=== PATIENT | male | born 1980 | race Hispanic/Latino ===

== ENCOUNTER 2018-06-04 11:13 | Emergency (ER) | payer OTHER ==
[2018-06-04 11:36] VITALS: BMI 24.4
[2018-06-04 11:38] VITALS: TEMP 98.5; O2SAT 97
[2018-06-04] MEDS ORDERED: Morphine 4 MG/ML VIAL IVP ONE (11:55)
[2018-06-04] MEDS ORDERED: Sodium Chloride 0.9% 50 ML IV ONE (12:07)
[2018-06-04] MEDS ORDERED: Iodixanol 320 MG/ML 100 ML BOTTLE IV ONE (12:07)
[2018-06-04] MEDS ORDERED: Morphine 4 MG/ML VIAL ONE (13:08)
--- NOTE | 2018-06-04 13:40 | ED PDOC ---
Upper Extremity Pain/Injury Time Seen by Provider: 06/04/18 11:23 Chief Complaint (Nursing): Upper Extremity Problem/Injury Chief Complaint (Provider): Upper Extremity Problem/Injury History Per: Patient History/Exam Limitations: no limitations Onset/Duration Of Symptoms: Days (x2) Current Symptoms Are (Timing): Still Present Additional Complaint(s): Patient is a 37 y/o male with a PMHx of pancreatitis and metastatic cancer who presents to the ED for evaluation of right shoulder pain for the past two days. Patient states the pain feels better when standing, however, has been experiencing worsening right arm pain as of recently. In addition, patient admits to weakness from chemotherapy. Patient reports to have been taking Oxycodone with no relief of symptoms. Patient denies any recent trauma. Of note, patient came to ED with paperwork for CT chest with contrast for further cancer workup requested by oncologist. PCP: None Provided Past Medical History Reviewed: Historical Data, Nursing Documentation, Vital Signs Vital Signs: Last Vital Signs Temp 98.5 F 06/04/18 11:37 Pulse 82 06/04/18 11:37 Resp 20 06/04/18 11:37 BP 133/81 06/04/18 11:37 Pulse Ox 97 06/04/18 11:37 - Medical History PMH: Pancreatitis Denies: Kidney Stones, Chronic Kidney Disease Other PMH: Metastatic Cancer - Surgical History Surgical History: No Surg Hx - Family History Family History: States: Unknown Family Hx - Home Medications Home Medications: Ambulatory Orders Medication Instructions Recorded RX: levoFLOXacin [Levaquin] 750 mg PO DAILY #5 tab 06/04/18 - Allergies Allergies/Adverse Reactions: Allergies Allergy/AdvReac Type Severity Reaction Status Date / Time No Known Allergies Allergy Verified 12/25/15 07:28 Review of Systems ROS Statement: Except As Marked, All Systems Reviewed And Found Negative Musculoskeletal: Positive for: Shoulder Pain (right), Arm Pain (worsening pressurized pain on right arm) Neurological: Positive for: Weakness Physical Exam - Reviewed Nursing Documentation Reviewed: Yes Vital Signs Reviewed: Yes - Physical Exam Appears: Positive for: No Acute Distress (tired) Head Exam: Positive for: ATRAUMATIC, NORMAL INSPECTION, NORMOCEPHALIC Skin: Positive for: Normal Color, Warm, Dry Eye Exam: Positive for: EOMI, Normal appearance, PERRL Neck: Positive for: Normal, Painless ROM, Supple Cardiovascular/Chest: Positive for: Regular Rate, Rhythm. Negative for: Murmur Respiratory: Positive for: Normal Breath Sounds. Negative for: Respiratory Distress Gastrointestinal/Abdominal: Positive for: Normal Exam, Soft. Negative for: Tenderness Back: Positive for: Normal Inspection. Negative for: L CVA Tenderness, R CVA Tenderness, Vertebral Tenderness Extremity: Positive for: Tenderness (to palpation of anterior and lateral shoulder ). Negative for: Normal ROM (unable to move arm because of severe pain), Pedal Edema, Deformity Neurologic/Psych: Positive for: Alert, Oriented. Negative for: Motor/Sensory Deficits - Laboratory Results Result Diagrams: 06/04/18 13:36 06/04/18 13:36 - ECG O2 Sat by Pulse Oximetry: 97 (RA) Pulse Ox Interpretation: Normal Medical Decision Making Medical Decision Making: Time: 1153 Impression: Workup for onset new shoulder pain, r/o cardiac vs pulmonary iteology with history of new onset chemotherapy and advanced metastatic cancer. Plan: CT Angio Chest PE Protocol CMP CBC PTT Prothrombin Time CXR Morphine 8 mg IVP Time: 1200 An oncology appointment was scheduled with [facility] for tomorrow. Currently Following oncologist in [place]. Time: 184 CT shows right lower lobe PNA. Will send blood culture and start patient on levaquin. Discussed case with patient's oncologist, Dr. Sultana phone number [phone]. Patient is getting lab results and will further be treated for pain. Patient will be discharged home with Rx of Levaquin. Patient has a scheduled follow up tomorrow. Return parameters were discussed. Scribe Attestation: Documented by Evens Echeverria, acting as a scribe for Kasey Rico MD. Provider Scribe Attestation: All medical record entries made by the Scribe were at my direction and personally dictated by me. I have reviewed the chart and agree that the record accurately reflects my personal performance of the history, physical exam, medical decision making, and the department course for this patient. I have also personally directed, reviewed, and agree with the discharge instructions and disposition. Disposition - Clinical Impression Clinical Impression: Pneumonia - Disposition Disposition: Routine/Home Disposition Time: 18:50 Condition: IMPROVED Additional Instructions: Take antibiotics as prescribed. Follow up with primary medical doctor and oncologists as needed. Return to the emergency department if symptoms worsen or if new symptoms develop. Prescriptions: RX: levoFLOXacin [Levaquin] 750 mg PO DAILY #5 tab Instructions: Pneumonia, Adult (DC) Forms: [facility] (Malaysian) Print Language: AUSTRIAN
[2018-06-04 14:12] LABS: BASO % 0.2 % (0.0-2.0); EOS % 0.6 % (0.0-4.0); HEMOGLOBIN 11.5 g/dL (12.0-18.0); LYMPH # 0.7 K/uL (1.0-4.3); LYMPH % 10.1 % (20.0-40.0); MEAN CELL VOLUME 93.4 fl (80.0-94.0); MEAN CORPUSCULAR HEMOGLOBIN 30.9 pg (27.0-31.0); MEAN CORPUSCULAR HGB CONC 33.1 g/dL (33.0-37.0); MEAN PLATELET VOLUME 9.4 fl (7.2-11.7); MONO % 0.3 % (0.0-10.0); NEUT # 6.4 K/uL (1.8-7.0); NEUT % 88.8 % (50.0-75.0); RBC 3.73 Mil/uL (4.40-5.90); RED CELL DISTRIBUTION WIDTH 12.4 % (11.5-14.5); WHITE BLOOD COUNT 7.2 K/uL (4.8-10.8)
[2018-06-04 14:18] LABS: INR 1.4; PROTHROMBIN TIME 15.7 Seconds (9.8-13.1)
[2018-06-04 14:20] LABS: PARTIAL THROMBOPLASTIN TIME 37.1 Seconds (25.6-37.1)
[2018-06-04 14:40] LABS: ALB/GLOB RATIO 1.3 (1.0-2.1); ALBUMIN 4.1 g/dL (3.5-5.0); ALT/SGPT 164 U/L (21-72); AST/SGOT 378 U/L (17-59); BLOOD UREA NITROGEN 31 mg/dl (9-20); CALCIUM 9.5 mg/dL (8.4-10.2); GFR NON-AFRICAN AMERICAN 56
--- NOTE | 2018-06-04 14:59 | RAD ---
Date of service: 06/04/2018 HISTORY: cough COMPARISON: No prior. TECHNIQUE: Chest PA and lateral FINDINGS: LUNGS: No active pulmonary disease. PLEURA: No significant pleural effusion identified. No pneumothorax apparent. CARDIOVASCULAR: No aortic atherosclerotic calcification present. Normal cardiac size. No pulmonary vascular congestion. OSSEOUS STRUCTURES: No significant abnormalities. VISUALIZED UPPER ABDOMEN: Normal. OTHER FINDINGS: None. IMPRESSION: No active disease.
[2018-06-04] MEDS ORDERED: Sodium Chloride 0.9% 1,000 ML IV STA (15:06)
--- NOTE | 2018-06-04 15:15 | RAD ---
Date of service: 06/04/2018 PROCEDURE: Radiographs of the Right Shoulder HISTORY: new onset shoulder pain COMPARISON: No prior. FINDINGS: BONES: Normal. No fracture. JOINTS: Normal. Glenohumeral and acromioclavicular joints preserved. No osteoarthritis. SOFT TISSUES: Normal. OTHER FINDINGS: None. IMPRESSION: Normal radiographs of the right shoulder.
[2018-06-04 16:01] VITALS: BP 125/79; PULSE 81; RESP 18
[2018-06-04] MEDS ORDERED: levoFLOXacin 750 mg in D5W 150 ML BAG IVPB STA (18:47)
[2018-06-04] MEDS ORDERED: levoFLOXacin 750 mg in D5W 750 MG/150 ML BAG IVPB ONE (19:02)
--- NOTE | 2018-06-05 11:09 | CT ---
Date of service: 06/04/2018 PROCEDURE: CT Chest with contrast (Pulmonary Angiogram) HISTORY: r/o PE and lung mets COMPARISON: How the TECHNIQUE: Axial computed tomography images were obtained of the chest in the pulmonary arterial phase of enhancement. Coronal and sagittal reformatted images were created and reviewed. Intravenous contrast dose: 99 mL Visipaque 320 Radiation dose: Total exam DLP = 480.78 mGy-cm. This CT exam was performed using one or more of the following dose reduction techniques: Automated exposure control, adjustment of the mA and/or kV according to patient size, and/or use of iterative reconstruction technique. FINDINGS: PULMONARY ARTERIES: Evaluation of acute pulmonary embolism is limited due to missed bolus. There are no large central filling defects in the pulmonary arteries to suggest acute central pulmonary embolism. AORTA: No acute findings. No thoracic aortic aneurysm. No aortic atherosclerotic calcification or mural plaque present. LUNGS: There is subsegmental atelectasis in the lung bases. No nodule, mass or pulmonary consolidation. PLEURAL SPACES: No effusion or pneumothorax. HEART: No cardiomegaly. No significant pericardial effusion. LYMPH NODES: There are bilateral enlarged axillary lymph nodes. No evidence for mediastinal or hilar lymphadenopathy BONES, CHEST WALL: There are multiple Schmorl's nodes and mild anterior wedging the thoracic vertebral bodies. No acute fracture or destructive lesion. IMPRESSION: Technically limited examination due to missed bolus which limits evaluation of acute pulmonary embolism. Allowing for this, no CTA evidence for acute central pulmonary embolism. Bibasilar atelectasis. Superimposed pneumonia cannot be excluded. Follow-up is advised. Bilateral axillary lymphadenopathy which may be reactive or metastatic in etiology given known metastatic carcinoma. A preliminary report was provided by [employer].
--- NOTE | 2018-06-05 11:36 | CT ---
Date of service: 06/04/2018 PROCEDURE: CT Abdomen and Pelvis with contrast HISTORY: metastatic CA COMPARISON: None available. TECHNIQUE: CT scan of the abdomen and pelvis was performed after administration of intravenous contrast. Oral contrast was not administered. Coronal and sagittal reformatted images were obtained. Contrast dose: 99 mL Visipaque 320 Radiation dose: Total exam DLP = 480.79 mGy-cm. This CT exam was performed using one or more of the following dose reduction techniques: Automated exposure control, adjustment of the mA and/or kV according to patient size, and/or use of iterative reconstruction technique. FINDINGS: LIVER: There is severe hepatomegaly. There are innumerable low-attenuation areas in the liver. No biliary ductal dilatation GALLBLADDER AND BILE DUCTS: Well distended. No calcified gallstones, wall thickening or pericholecystic fluid. PANCREAS: Normal in size with homogeneous enhancement. No gross lesion or ductal dilatation. SPLEEN: Severe splenomegaly. Homogeneous enhancement. ADRENALS: No discrete nodule. KIDNEYS AND URETERS: The kidneys are normal in size with homogeneous enhancement. No hydronephrosis. No solid mass. There is a 1.9 cm simple cyst in the lower pole of the left kidney. VASCULATURE: No aortic aneurysm. There are no aortic atherosclerotic calcifications or mural plaque present. Are extensive portosystemic varices. BOWEL: Evaluation of the bowel is limited in the absence of oral contrast. The small bowel loops are normal in caliber. The colon is grossly normal in appearance. No bowel wall thickening or obstruction. APPENDIX: Normal appendix. PERITONEUM: No free fluid. No free air. LYMPH NODES: No enlarged lymph nodes. BLADDER: Well distended and normal in appearance. REPRODUCTIVE: The prostate gland is normal in size. BONES: No acute fracture. There is a radiolucent multilocular lesion in the lateral left femoral neck with sclerotic rim and a narrow zone of transition and stable since the prior examination most compatible with a benign lesion. OTHER FINDINGS: None. IMPRESSION: 1. Severe hepatosplenomegaly. Extensive portosystemic varices. 2. Innumerable low-density lesions in the liver most compatible with metastatic nodules with the stated clinical history. Important findings were discussed with Dr. Kasey Rico on 06/05/2018 at 11:30 a.m.
== END 2018-06-04 21:32 | disposition home or self-care (01) ==
LOC: H.ER 11:13
DX: J18.9 Pneumonia, unspecified organism (principal); C79.9 Secondary malignant neoplasm of unspecified site; K85.90 Acute pancreatitis without necrosis or infection, unspecified; Z92.21 Personal history of antineoplastic chemotherapy
CPT/HCPCS: 71046; 71275; 73030; 74177; 80053; 85025; 85610; 85730; 87040; 96361; 96374; 96375; 96376; 99285; J1170; J2270; J2405; J7030; Q9967